=== PATIENT | female | born 1980 | race Caucasian/White ===

== ENCOUNTER → 2017-01-24 | Outpatient (CLI) | payer OTHER ==
[~2017-01-24] MED LIST: BACTRIM DS TABL1 TA1 PO; BENZONATATE PO; DICYCLOMINE HCL20 MG PO; MEDROL PO; PEPCID AC20 M2 PO; PSYCH MEDS; ZOFRAN ODT4 MG PO; ZOFRANODT PO; [UNRECOGNIZED DRUG - REMARK]
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
== END | disposition home or self-care (01) ==
LOC: CMRI 01-17 17:00
DX: F44.89 Other dissociative and conversion disorders (principal)
CPT/HCPCS: 70553; A9577

== ENCOUNTER → 2017-02-21 | Outpatient (CLI) | payer OTHER ==
--- NOTE | ~2017-02-21 | EE ---
Unit #: [id number] #: [id number] Patient: DANA GALLARDO [id number] [facility]. [address] [address] [id number] O MR#: [id number] NAME: DANA GALLARDO : 1980 SEX: F STUDY DATE/TIME: 02/21/2017 UNIT: CEEG ROOM: STUDY DESCRIPTION: EEG Attending Physician: Gregory Baker M.D. Referring Physician: Gregory Baker M.D. Primary Care Physician: Gregory Baker M.D. NEURODIAGNOSTICS REPORT EXAM EEG. REASON FOR STUDY Syncope and collapse. EEG DESCRIPTION This is an outpatient, digitally recorded, multi-montage adult EEG with leads placed according to the International 10-20 system. Hyperventilation and photic stimulation was attempted. With the patient fully aroused, there is 10-11 Hz posterior dominant alpha rhythm, which is symmetric and attenuates with eyes opening. The patient did become drowsy and later on stage II sleep was seen. Hyperventilation was attempted, but I did not see any significant changes. Photic stimulation was attempted in an intermittent, stepwise fashion up to the flash frequency of 30 Hz, but I did not see any significant driving, asymmetry, or paroxysmal activity. Occasionally, artifact was seen in F7 and other leads. IMPRESSION Likely normal adult awake and asleep EEG. EEG like this does not rule out epilepsy. There were some transients between C3 and P3, but very nonspecific so clinical correlation is recommended. Dictated by... Randy Cano/víctor TD: 02/22/2017 06:24 JOB #: [id number] Unit #: [id number] #: [id number] Patient: DANA GALLARDO NEURODIAGNOSTICS REPORT Page 1 of 1 X Jonathan Coleman MD NEURODIAGNOSTICS REPORT
== END | disposition home or self-care (01) ==
LOC: CEEG 08:45
DX: R55 Syncope and collapse (principal)
CPT/HCPCS: 95816

== ENCOUNTER 2017-02-27 17:29 | Emergency (ER) | payer OTHER ==
[~2017-02-27] VITALS: Ht 157.5 cm; Wt 111.1 kg
--- NOTE | ~2017-02-27 | CT71 ---
[facility] A Service [facility] RADIOLOGY TEXT RESULTS PATIENT: DANA GALLARDO LOCATION: SED : 78 UNIT #: [id number] AGE: [address]: Meg Leija MD SEX: F ORDER DR: [id number] [address] [address] [id number] E MR#: [id number] Acc #: [id number] NAME: DANA GALLARDO : 1980 SEX: F STUDY DATE/TIME: 02/27/2017 18:32 UNIT: SED ROOM: STUDY DESCRIPTION: CT Head Wo Contrast Attending Physician: Meg Leija M.D. Ordering Physician: Meg Leija M.D. Primary Care Physician: [facility]. MEDICAL IMAGING REPORT This report is preliminary unless electronic signature is present. EXAM CT head without contrast dated 02/27/17. COMPARISON MRI brain with and without contrast dated 01/28/17. HISTORY Possible seizures, headaches for [address] of the head was obtained without contrast in the axial plane as per the protocol. Axial noncontrast images were obtained from the skull base to the vertex. This CT exam was performed with one or more of the following radiation dose reduction techniques: automatic exposure control, adjustment of mA and/or kV according to patient size, and iterative reconstruction. Ventricular size and configuration are normal. There is no evidence of acute infarct or hemorrhage. There are no extraaxial fluid collections. No mass lesion or mass effect is seen. There are no skull fractures. S-shaped nasal septal deviation is noted with mild paranasal sinus mucosal thickening, particularly in the right ethmoid sinus. 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 IMPRESSION Normal noncontrast head CT. Dictated by... Amy Villaseñor M.D. THIS IS AN ELECTRONICALLY VERIFIED REPORT Amy Villaseñor M.D. at 02/28/2017 6:38 PM CPR/pc [facility] A Service [facility] RADIOLOGY TEXT RESULTS PATIENT: DANA GALLARDO LOCATION: [facility] [place] 78 UNIT #: [id number] AGE: [address]: Meg Leija MD SEX: F ORDER DR: TD: 02/28/2017 10:04 JOB #: [id number] MEDICAL IMAGING REPORT Page 1 of 1
[2017-02-27 18:17] LABS: URINE SOURCE CLEAN CATCH
[2017-02-27 18:19] LABS: BASOPHIL# 0.1 X10e3 (0-0.3); BASOPHIL% 0.7 % (0-2.5); DIFF IND NO; EOSINOPHIL# 0.2 X10e3 (0-0.7); EOSINOPHIL% 2.6 % (0.0-7.0); HEMATOCRIT 36.6 % (35.0-45.0); HEMOGLOBIN 12.5 gm/dL (12.0-16.0); LYMPHOCYTE# 1.7 X10e3 (1.0-3.5); LYMPHOCYTE% 22.1 % (17.0-45.0); MEAN CELL VOLUME 84.4 FL (83-96); MEAN CORPUSCULAR HEMOGLOBIN 28.8 PG (28-34); MEAN CORPUSCULAR HGB CONC 34.1 g/dL (30-36); MEAN PLATELET VOLUME 8.5 FL (6.5-11.5); MONOCYTE# 0.4 X10e3 (0-1.0); MONOCYTE% 5.5 % (3.0-12.0); NEUTROPHIL# 5.3 X10e3 (1.5-7.1); NEUTROPHIL% 69.1 % (40-75); PLATELET COUNT 189 X10e3 (140-420); RED BLOOD COUNT 4.33 X10e (3.90-5.30); RED CELL DISTRIBUTION WIDTH 14.2 % (11.0-15.5); WHITE BLOOD COUNT 7.7 X10e3 (4.0-10.5)
[2017-02-27 18:21] LABS: MICRO INDICATED? NO; URINE APPEARANCE CLEAR; URINE BILIRUBIN NEG (NEG); URINE BLOOD NEG (NEG); URINE COLOR YELLOW; URINE GLUCOSE NEG (NORM); URINE KETONE NEG (NEG); URINE LEUKOCYTE ESTERASE NEG (NEG); URINE NITRATE NEG (NEG); URINE PH 6.5 (5-8); URINE PROTEIN NEG (NEG); URINE SPECIFIC GRAVITY 1.025 (1.003-1.035)
[2017-02-27 18:35] LABS: AMPHETAMINE NEG (NEG); BARBITURATES NEG (NEG); BENZODIAZEPINES NEG (NEG); BLOOD UREA NITROGEN 15 mg/dL (9-23); CALCIUM SERUM 8.9 mg/dL (8.4-10.2); CARBON DIOXIDE 31 mmol/L (22-31); CHLORIDE 101 mmol/L (100-111); COCAINE NEG (NEG); CREATININE SERUM 0.6 mg/dL (0.6-1.4); GLOM FILT RATE Estimated 116.4 mL/min (>60); GLUCOSE FASTING 94 mg/dL (70-110); MARIJUANA NEG (NEG); OPIATES NEG (NEG); POTASSIUM 4.1 mmol/L (3.5-5.1); SODIUM 138 mmol/L (135-145); TRICYCLIC ANTIDEPRESSANTS POS (NEG); U METHADONE NEG (NEG)
[2017-02-27 18:37] LABS: ALCOHOL BLOOD <5 mg/dL (0)
== END 2017-02-27 19:02 | disposition home or self-care (01) ==
LOC: SED 17:29
PROVIDERS: Student in an Organized Health Care Education/Training Program
DX: R51 Headache (principal); F80.81 Childhood onset fluency disorder; G40.909 Epilepsy, unspecified, not intractable, without status epilepticus; F41.9 Anxiety disorder, unspecified; F31.9 Bipolar disorder, unspecified
CPT/HCPCS: 36415; 70450; 80048; 80307; 81003; 84703; 85025; 99285; G0480